=== PATIENT | female | born 1950 | race Caucasian/White ===

== ENCOUNTER 2021-11-05 22:28 | Inpatient (IN) | payer MEDICARE ==
[~2021-11-05] VITALS: Ht 165.1 cm; Wt 97.0 kg
[~2021-11-05 22:28] MED LIST: ATEN25 PO; CLOP75 PO
[2021-11-06 00:07] LABS: BASOPHILS ABSOLUTE AUTO 0.03 K/mm3 (0.00-0.23); BASOPHILS PERCENT AUTO 0 % (0-2); EOSINOPHILS PERCENT AUTO 1 % (0-6); Hematocrit 24.1 % (33.0-51.0); IMMATURE GRAN ABSOLUTE AUTO 0.02 K/mm3 (0.00-0.10); IMMATURE GRAN PERCENT AUTO 0 % (0-1); LYMPHOCYTES ABSOLUTE AUTO 1.26 K/mm3 (0.84-5.20); LYMPHOCYTES PERCENT AUTO 16 % (21-46); MONOCYTES ABSOLUTE AUTO 0.49 K/mm3 (0.16-1.47); MONOCYTES PERCENT AUTO 6 % (4-13); Mean Corpuscular HGB 28.4 pg (26.0-34.0); Mean Corpuscular HGB Conc 31.5 g/dL (31.5-36.5); Mean Corpuscular Volume 90 fL (80-100); Mean Platelet Volume 11.9 fL (9.1-12.4); NEUTROPHILS ABSOLUTE AUTO 5.86 K/mm3 (1.96-9.15); NEUTROPHILS PERCENT AUTO 76 % (41-73); Platelet Count 123 K/mm3 (150-400); RDW Coefficient Variation 13.5 % (11.7-14.2); RDW Standard Deviation 44.9 fL (35.1-46.3); Red Blood Cell Count 2.68 M/mm3 (3.80-5.20); White Blood Cell Count 7.76 K/mm3 (4.00-11.30)
[2021-11-06 00:26] LABS: Albumin, Blood 2.7 g/dL (3.4-5.0); Albumin/Globulin Ratio 0.7 (0.8-1.8); Bilirubin, Total 0.2 mg/dL (0.1-1.0); Bun/Creatinine Ratio 18.9 (12.0-20.0); Calcium, Blood 7.5 mg/dL (8.5-10.1); Creatinine, Blood 0.95 mg/dL (0.40-1.00); Globulin, Blood 3.7 g/dL (2.2-4.0); Potassium, Blood 3.5 mmol/L (3.5-5.5); Total Protein, Blood 6.4 g/dL (6.4-8.2)
[2021-11-06] MEDS ORDERED: COENZYME Q10200 MG PO (00:52)
--- NOTE | 2021-11-06 03:50 | NUR ---
ER ADMIT. PT BROUGHT UP BY W/C, BY SIDE. A/O. RA. DENIES CP, NAUSEA. RESP E/U. SPEECH CLEAR. PT ORIENTED TO CALL LT SYSTEM AND INSTRUCTED TO PLEASE YOU CALL LIGHT FOR TRANSFER NEEDS. WILL CONTINUE TO PROVIDE CARE UNTIL SHIFT REPORT.
[2021-11-06] MEDS ORDERED: HAWTHORNE BERRY PO (03:59)
[2021-11-06] MEDS ORDERED: Preservision S1 EACH PO (04:00)
[2021-11-06] MEDS ORDERED: FURO20 PO (04:02)
[2021-11-06] MEDS ORDERED: LISI20 PO (04:02)
[2021-11-06 04:43] LABS: BASOPHILS ABSOLUTE AUTO 0.05 K/mm3 (0.00-0.23); BASOPHILS PERCENT AUTO 0 % (0-2); EOSINOPHILS ABSOLUTE AUTO 0.15 K/mm3 (0.00-0.68); EOSINOPHILS PERCENT AUTO 1 % (0-6); Hematocrit 37.7 % (33.0-51.0); IMMATURE GRAN ABSOLUTE AUTO 0.03 K/mm3 (0.00-0.10); IMMATURE GRAN PERCENT AUTO 0 % (0-1); LYMPHOCYTES ABSOLUTE AUTO 2.65 K/mm3 (0.84-5.20); LYMPHOCYTES PERCENT AUTO 23 % (21-46); MONOCYTES ABSOLUTE AUTO 0.74 K/mm3 (0.16-1.47); MONOCYTES PERCENT AUTO 6 % (4-13); Mean Corpuscular HGB 27.8 pg (26.0-34.0); Mean Corpuscular HGB Conc 31.8 g/dL (31.5-36.5); Mean Corpuscular Volume 88 fL (80-100); Mean Platelet Volume 11.3 fL (9.1-12.4); NEUTROPHILS ABSOLUTE AUTO 8.17 K/mm3 (1.96-9.15); NEUTROPHILS PERCENT AUTO 69 % (41-73); Platelet Count 192 K/mm3 (150-400); RDW Coefficient Variation 13.4 % (11.7-14.2); RDW Standard Deviation 42.9 fL (35.1-46.3); Red Blood Cell Count 4.31 M/mm3 (3.80-5.20); White Blood Cell Count 11.79 K/mm3 (4.00-11.30)
[2021-11-06 04:56] LABS: Anti-Xa UFH, PHA Monitoring <0.10 IU/mL; International Normalized Ratio 1.01; Prothrombin Time Results 10.6 Sec (9.7-11.5)
[2021-11-06 05:00] LABS: Albumin, Blood 3.3 g/dL (3.4-5.0); Albumin/Globulin Ratio 0.8 (0.8-1.8); Bilirubin, Total 0.3 mg/dL (0.1-1.0); Bun/Creatinine Ratio 15.8 (12.0-20.0); Calcium, Blood 8.8 mg/dL (8.5-10.1); Creatinine, Blood 1.14 mg/dL (0.40-1.00); Globulin, Blood 4.1 g/dL (2.2-4.0); Potassium, Blood 4.6 mmol/L (3.5-5.5); Total Protein, Blood 7.4 g/dL (6.4-8.2)
[2021-11-06 05:51] LABS: Percent Saturation 17.9 % (15.0-50.0)
--- NOTE | 2021-11-06 05:53 | NUR ---
SHIFT SUMMARY: ER ADMIT AT 0350. A/O. SR ON TELE AT 75. HAS DENIED CP, NAUSEA. NO COMPLAINTS. NPO AT THIS TIME. CARDIOLOGY CONSULT CALLED. TROPONINS TRENDING DOWN, LAST TROP 277. ON A HEPARIN GTT, 15U/KG/HR, 21.9 MLS/HR, WT 73KG. HAS BEEN INDEP TO BR. HX OF CHF AND STROKES. WILL CONTINUE TO PROVIDE CARE UNTIL SHIFT REPORT.
[2021-11-06 06:01] LABS: Hemoglobin 7.6 g/dL (11.5-16.0)
--- NOTE | 2021-11-06 10:59 | NUR ---
PT DECLINED HER MORNING MEDICATIONS- SPOKE TO THE PT AT LENGTH ABOUT HER MEDICATIONS THAT WERE ORDERED THIS AM. SHE STILL DECLINED TO TAKE ANY MEDICATIONS OTHER THAN THE LASIX AND LISINOPRIL SHE TAKES AT HOME. SPOKE TO DR WHARTON (DR DONOHUE, CARDIOLOGY) ALSO DISCUSSED THE PT HOME MEDICATIONS SHE HAS BEEN TAKING HAWTHORN GRIFFITH AND CO-Q10 Tx FOR HER CHF. IS NOW AWARE, PT DECLINED HER MORNING MEDS.
--- NOTE | 2021-11-06 18:52 | NUR ---
SHIFT SUMMARY- PT ALERT AND ORIENTED, INDEPENDENT IN THE ROOM. PT ON A HEPARIN DRIP DOSE HAS REMAINED STEADY T/O THE SHIFT. ACCORDING TO CARDIOLOGY THE PLAN IS TO CTM PT T/O THE NIGHT, MAINTAINING THE HEPARIN DRIP, IF NO EVENTS THEN THE PT WILL GO HOME TOMORROW. PT HAS HAD TWO SMALL RUNS OF VENTRICULAR BIGEMENY, CARDIOLOGY IS AWARE OF THESE. PT CURRENTLY UP ON HER WAY TO THE BATHROOM INDEPENDENTLY. PT DECLINED TO TAKE RATE CONTROL MEDICATION AND SEVERAL OTHER MEDS. HOG RAISER IS AWARE OF THIS WELL. PT HAS DENIED CP T/O THE SHIFT. WILL CTM AND PASS ON TO NIGHT RN IN BEDSIDE REPORT.
--- NOTE | 2021-11-06 20:10 | NUR ---
PT STANDING AT BEDSIDE TO MOVE AROUND. HEP GTT INFUSING. ON RA. TELE IN PLACE. STATES HER DAY WAS PRETTY GOOD. DENIES CP, SOB. NO NEEDS AT THIS TIME. WILL CONTINUE TO PROVIDE CARE T/O SHIFT.
--- NOTE | 2021-11-06 22:47 | NUR ---
PT IN BED RESTING QUIETLY. HEP GTT INFUSING. CALL LT IN REACH.
--- NOTE | 2021-11-07 | NUR ---
PT RESTING QUIETLY. HEP GTT INFUSING. CALL LT IN REACH.
--- NOTE | 2021-11-07 02:00 | NUR ---
PT RESTING QUIETLY. CALL LT IN REACH.
--- NOTE | 2021-11-07 03:00 | NUR ---
NEW HEPARIN BAG HUNG. NO CHANGES IN HEP DOSING. PT AWAKE, STATES SHE'S DOING WELL. CALL LT IN REACH.
--- NOTE | 2021-11-07 04:10 | NUR ---
SHIFT SUMMARY: NO ACUTE CHANGES. NO COMPLAINTS OF CP OR SOB. PT RESTED WELL T/O SHIFT. HEP GTT INFUSING WITHOUT DIFFICULTY. ON RA. MOVES AROUND IN RM INDEPENDENTLY. SINUS RHYTHM AT 89 WITH SOME PVC'S AND BIGEMINY. WILL CONTINUE TO PRVIDE CARE UNTIL SHIFT REPORT.
[2021-11-07] MEDS ORDERED: ASPI81CH PO (10:58)
[2021-11-07] MEDS ORDERED: Acetaminophen650 M1 PO (10:58)
[2021-11-07] MEDS ORDERED: ATOR40TA PO (11:01)
[2021-11-07] MEDS ORDERED: ATEN25 PO (11:01)
--- NOTE | 2021-11-07 11:55 | NUR ---
DISCHARGE SUMMARY: PT DISCHARGED HOME TODAY. PT SHOWERED PRIOR TO LEAVING. PT EDUCATED ON DISCHARGE PLAN AND MEDICATIONS. PT STATED SHE WOULD NOT TAKE ATENOLOL AND ATORVASTATIN UNTIL SHE SPOKE TO HER REGISTERED NURSE MIDWIFE THEREFORE, SHE DID NOT WANT ME TO FAX MEDICATIONS TO PHARMACY. SINCE PT HAD A CARDIOLOGY APPOINTMENT PROGRESS NOTES, LAB RESULTS AND ECHO RESULTS PRINTED OUT AND SENT WITH PT AND INSTRUCTED HER TO GIVE TO HER DOCTOR AT THE VISIT. PT VU. PT ESCORTED TO LOBBY VIA REQUESTED WHERE SHE STATED SHE WOULD WAIT FOR HER TO PICK HER UP. BELONGINGS SENT WITH PT.
== END 2021-11-07 11:51 | disposition home or self-care (01) | DRG 281 ==
LOC: ER 22:28 → MEDS 11-06 02:34 → ENPENDDIS 11-07 10:31 → MEDS 11-07 11:51
PROVIDERS: Family Medicine; Physician Assistant; ADMIT Internal Medicine
DX: I21.4 Non-ST elevation (NSTEMI) myocardial infarction (principal); I13.0 Hypertensive heart and chronic kidney disease with heart failure and stage 1 through stage 4 chronic kidney disease, or unspecified chronic kidney disease; I50.42 Chronic combined systolic (congestive) and diastolic (congestive) heart failure; I49.3 Ventricular premature depolarization; I25.10 Atherosclerotic heart disease of native coronary artery without angina pectoris; D63.1 Anemia in chronic kidney disease; I08.0 Rheumatic disorders of both mitral and aortic valves; I48.91 Unspecified atrial fibrillation; N18.30 Chronic kidney disease, stage 3 unspecified; N39.46 Mixed incontinence; M85.80 Other specified disorders of bone density and structure, unspecified site; Z79.899 Other long term (current) drug therapy; Z86.73 Personal history of transient ischemic attack (TIA), and cerebral infarction without residual deficits; Z87.01 Personal history of pneumonia (recurrent); Z98.890 Other specified postprocedural states; Z79.01 Long term (current) use of anticoagulants; Z79.811 Long term (current) use of aromatase inhibitors; Z86.16 Personal history of COVID-19
CPT/HCPCS: 36415; 71045; 80053; 82728; 83540; 83550; 83690; 84484; 85025; 85520; 85610; 93005; 93010; 93306; 99285-25; A9270; J1644; J7030

== ENCOUNTER → 2023-01-10 | Outpatient (CLI) | payer MEDICARE ==
[~2023-01-10] MED LIST changes: +ASPI81CH PO; +ATOR40TA PO; +Acetaminophen650 M1 PO; +COENZYME Q10200 MG PO; +FURO20 PO; +HAWTHORNE BERRY PO; +LISI20 PO; +PLAVIX75 MG PO; +Preservision S1 EACH PO
[2023-01-10 16:17] LABS: Prolactin 6.6 ng/mL (2.74-19.64)
[2023-01-10 16:18] LABS: Albumin, Blood 3.5 g/dL (3.4-5.0); Anion Gap 4 mmol/L (6-16); Blood Urea Nitrogen 16 mg/dL (8-24); Bun/Creatinine Ratio 13.7 (12.0-20.0); CO2, Blood 25 mmol/L (21-32); Calcium, Blood 8.9 mg/dL (8.5-10.1); Chloride, Blood 109 mmol/L (98-108); Creatinine, Blood 1.17 mg/dL (0.40-1.00); Glomerular Filtration Rate 49 (60-); Glucose, Blood 94 mg/dL (70-99); Phosphorus, Blood 3.9 mg/dL (2.5-4.9); Potassium, Blood 4.5 mmol/L (3.5-5.5); Sodium, Blood 138 mmol/L (136-145)
== END | disposition home or self-care (01) ==
LOC: LAB 13:43 → LAB SHORT 13:43
PROVIDERS: Internal Medicine
DX: N64.52 Nipple discharge (principal); I10 Essential (primary) hypertension
CPT/HCPCS: 80069; 84146; 84443

== ENCOUNTER → 2024-02-27 | Outpatient (CLI) | payer MEDICARE ==
[~2024-02-27] MED LIST changes: +ALBU90OI INH; +METPRE4DP PO
== END | disposition home or self-care (01) ==
LOC: LAB SHORT 17:03 → LAB 17:03
DX: R35.0 Frequency of micturition (principal)
CPT/HCPCS: 87086

== ENCOUNTER → 2025-01-22 | Outpatient (CLI) | payer MEDICARE | LOC: LAB SHORT 10:15 → LAB 10:15 | DX: R10.13 Epigastric pain (principal) | CPT/HCPCS: 87338 ==